=== PATIENT | female | born 1960 | race Caucasian/White ===

== ENCOUNTER 2023-04-29 17:19 | Emergency (ER) | payer OTHER ==
[2023-04-29] MEDS ORDERED: Bacitracin Oint 1 GM U/D Packet TOP ONE (21:10)
== END 2023-04-29 23:02 | disposition home or self-care (01) ==
LOC: JP.ED 17:19
DX: M94.0 Chondrocostal junction syndrome [Tietze] (principal); I10 Essential (primary) hypertension; E03.9 Hypothyroidism, unspecified; Z91.041 Radiographic dye allergy status; Z88.6 Allergy status to analgesic agent; Z88.8 Allergy status to other drugs, medicaments and biological substances
CPT/HCPCS: 71250; 99285